=== PATIENT | female | born 1990 | race Caucasian/White ===

== ENCOUNTER 2019-02-12 10:09 | Emergency (ER) | payer MEDICAID ==
[~2019-02-12] VITALS: Ht 172.7 cm; Wt 57.5 kg
[2019-02-12 10:26] VITALS: BP 89/64
--- NOTE | 2019-02-12 10:54 | NUR ---
LIST OF RESOURSES FOR PT GIVEN AND PT STILL REQUEST SW. SW CONTACTED AND MESSAGE LEFT.
[2019-02-12] MEDS ORDERED: hydrOXYzine 50 MG/ML IM PRN (11:30)
--- NOTE | 2019-02-12 11:50 | NUR ---
TASK RN: MEDICATION ADMINISTERED PER ORDER. SERENA.
[2019-02-12 11:54] LABS: BASOPHILS # (AUTO) 0.02 x10^3/uL (0-0.1); BASOPHILS % (AUTO) 0 % (0-1); EOSINOPHILS # (AUTO) 0.05 x10^3/uL (0-0.4); EOSINOPHILS % (AUTO) 1 % (1-7); LYMPHOCYTES # (AUTO) 2.06 x10^3/uL (1-3.4); LYMPHOCYTES % (AUTO) 35 % (22-44); MD NO; MEAN CORPUSCULAR HEMOGLOBIN 29.4 pg (27.0-34.8); MEAN CORPUSCULAR HGB CONC 32.9 g/dL (32.4-35.8); MEAN CORPUSCULAR VOLUME 89.2 fL (80-100); MEAN PLATELET VOLUME 9.8 fL (7.4-10.4); MONOCYTES # (AUTO) 0.52 x10^3/uL (0.2-0.8); MONOCYTES % (AUTO) 9 % (2-9); NEUTROPHILS # (AUTO) 3.29 x10^3/uL (1.8-6.8); NEUTROPHILS % (AUTO) 55 % (42-75); PLATELET COUNT 275 x10^3/uL (130-400); RED BLOOD COUNT 5.15 x10^6/uL (3.82-5.3); RED CELL DISTRIBUTION WIDTH 13.9 % (9.6-15.2)
[2019-02-12 12:05] LABS: ALBUMIN 3.8 g/dL (3.4-5.0); CALCIUM 8.8 mg/dL (8.5-10.1)
[2019-02-12 12:15] LABS: T4 (THYROXINE) 11.8 mcg/dL (4.8-13.9)
--- NOTE | 2019-02-12 12:24 | NUR ---
PT REFUSING FOLLOW UP VITALS.
--- NOTE | 2019-02-12 12:25 | NUR ---
PT IN ROOM PACING AT THIS TIME.
[2019-02-12 12:27] LABS: CHLORIDE 107 mmol/L (98-107)
[2019-02-12 12:28] LABS: ANION GAP 4 mmol/L (5-15)
== END 2019-02-12 12:53 | disposition home or self-care (01) ==
LOC: ED 12:01
DX: F31.9 Bipolar disorder, unspecified (principal); Z76.0 Encounter for issue of repeat prescription
CPT/HCPCS: 36415; 80048; 82040; 84436; 84443; 85025; 96372; 99283; J3410